=== PATIENT | female | born 1995 | race Caucasian/White ===

== ENCOUNTER → 2023-04-21 16:08 | Outpatient (CLI) | payer BC, SELFPAY ==
[2023-04-21 18:51] LABS: HCG,Quantitative 49064 mIU/ml (0-5.42)
[2023-04-23 08:36] LABS: Progesterone 20.8 ng/mL (.)
== END ==
LOC: LAB 16:08
PROVIDERS: PCP Family Medicine; Visit Provider Obstetrics & Gynecology
DX: Z34.91 Encounter for supervision of normal pregnancy, unspecified, first trimester (principal)
CPT/HCPCS: 36415; 84144; 84702

== ENCOUNTER → 2023-05-03 14:00 | Outpatient (CLI) | payer BC, SELFPAY ==
[2023-05-03 15:04] LABS: Basophils % 0.2 % (0.1-2.0); Eosinophils # 0.1 K/mm3 (0.0-0.4); Eosinophils % 0.7 % (0.1-12.0); Hemoglobin 8.6 g/dL (12.2-16.2); Lymphocytes # 1.3 K/mm3 (0.7-4.5); Lymphocytes % 19.4 % (10-50); Mean Corpuscular HGB Conc 29.3 g/dL (31.8-35.4); Mean Corpuscular Hemoglobin 19.7 pg (27.0-31.2); Mean Corpuscular Volume 67.5 fl (81-99); Mean Platelet Volume 8.5 fl (7.4-10.4); Monocytes # 0.4 K/mm3 (0.1-1.0); Monocytes % 5.6 % (1.7-9.3); Neutrophils # 5.1 K/mm3 (1.8-7.8); Neutrophils % 74.1 % (37.0-80.0); Platelet Count 397 K/mm3 (142-424); Red Blood Count 4.33 M/mm3 (4.20-5.40); Red Cell Distribution Width 17.5 % (11.5-17.5); White Blood Count 6.9 K/mm3 (4.8-10.8)
[2023-05-03 15:11] LABS: Hematocrit 29.2 % (37.0-47.0)
[2023-05-05 10:47] LABS: HIV Screen 4th Generation wRfx Non Reactive (Non Reactive); Rubella Antibodies, IgG 9.24 index (Immune >0.99)
[2023-05-05 14:12] LABS: Rapid Plasma Reagin Ab Titer Non Reactive titer (NonRea<1:1)
[2023-05-11 08:21] LABS: Hepatitis B Surface Antigen Negative; Hepatitis C Antibody Non Reactive
== END ==
PROVIDERS: Visit Provider Obstetrics & Gynecology
DX: Z34.91 Encounter for supervision of normal pregnancy, unspecified, first trimester (principal); Z3A.08 8 weeks gestation of pregnancy
CPT/HCPCS: 36415; 85025; 86593; 86703; 86762; 86850; 87340; 87380; G0432

== ENCOUNTER → 2023-05-03 23:03 | Outpatient (CLI) | payer BC, SELFPAY | PROVIDERS: PCP Family Medicine; Visit Provider Obstetrics & Gynecology | DX: Z34.91 Encounter for supervision of normal pregnancy, unspecified, first trimester (principal); Z3A.08 8 weeks gestation of pregnancy | CPT/HCPCS: 87086 ==

== ENCOUNTER → 2023-07-28 12:35 | Outpatient (CLI) | payer BC, SELFPAY ==
--- NOTE | 2023-07-28 12:50 | US_ITS ---
PROCEDURE: US OB /MATERNAL DETAIL CLINICAL INDICATION: 20 week anatomy scan COMPARISON: No exams were available for comparison FINDINGS: Transabdominal sonographic images of the pelvis were obtained. From her established due date she is 20 weeks 5 days. Single viable intrauterine gestation. Initially breech position then changed to cephalic. Placenta: Posteriorplacenta grade 1. There is an average amount of fluid. The cervix appears satisfactory. Closed and measuring 4.02 cm in length. Complete survey performed and was unremarkable on the submitted images as in PACS. No discrete anomalies identified on survey imaging by technologist. Active fetus. Three-vessel cord with satisfactory umbilical cord insertion. 4- chamber heart noted. Situs, aortic arch, LVOT, RVOT, three-vessel view appear normal. Survey of brain & ventricles Unremarkable. Cerebellum, thalamus, choroid plexus, cisterna magna appear normal. Face and neck survey unremarkable. Profile, nasion, lips and nose appeared normal. Diaphragm and chest views unremarkable. Abdomen: Both kidneys noted and unremarkable. Stomach and bladder noted and satisfactory. Spine: Survey of the spine satisfactory with no anomalies identified nor imaged. Cervical, thoracic, lower spine appear normal. Both arms and legs noted. Amniotic Fluid: Adequate. Measurements: Average ultrasound age 20weeks 3days. Estimated due date by ultrasound age 0512/12/2023. Estimated weight 345g BPD = 20weeks 3days HC = 20weeks 3days AC = 20weeks 4days. FL = 20weeks Growth Percentile= 25 Heart Rate = 167bpm Cerebellum = 20weeks 4days Humerus = 20weeks 6days HC/AC is 1.16 FL/BPD is 0.67 . IMPRESSION: 1. Viable fetus initially in the breech presentation then switched to cephalic. 2. The fluid is within normal limits. 3. Anatomical scan appears normal. 4. biometry is consistent with the dates. Dictated by: Larry Walker MD 07/28/2023 16:47 Larry Walker MD in [place] 07/28/2023 16:47
== END ==
LOC: RAD 12:36
PROVIDERS: PCP Family Medicine; Visit Provider Obstetrics & Gynecology
DX: Z34.92 Encounter for supervision of normal pregnancy, unspecified, second trimester (principal); Z3A.20 20 weeks gestation of pregnancy
CPT/HCPCS: 76811

== ENCOUNTER 2023-09-04 08:19 | Outpatient (CLI) | payer BC, SELFPAY ==
[2023-09-04 08:44] LABS: Basophils % 0.4 % (0.1-2.0); Eosinophils # 0.1 K/mm3 (0.0-0.4); Eosinophils % 0.7 % (0.1-12.0); Hematocrit 26.4 % (37.0-47.0); Hemoglobin 8.4 g/dL (12.2-16.2); Lymphocytes # 1.4 K/mm3 (0.7-4.5); Lymphocytes % 22.1 % (10-50); Mean Corpuscular Hemoglobin 21.3 pg (27.0-31.2); Mean Corpuscular Volume 66.5 fl (81-99); Mean Platelet Volume 9.8 fl (7.4-10.4); Monocytes # 0.3 K/mm3 (0.1-1.0); Monocytes % 5.1 % (1.7-9.3); Neutrophils # 4.6 K/mm3 (1.8-7.8); Neutrophils % 71.8 % (37.0-80.0); Platelet Count 335 K/mm3 (142-424); Red Blood Count 3.96 M/mm3 (4.20-5.40); Red Cell Distribution Width 16.5 % (11.5-17.5); White Blood Count 6.4 K/mm3 (4.8-10.8)
[2023-09-04 10:05] LABS: Glucose,Fasting 81 mg/dl (74-100)
[2023-09-04 10:23] LABS: Glucose 1 Hour 107 mg/dL (74-100)
== END 2023-09-04 23:59 ==
LOC: LAB 08:21
PROVIDERS: PCP Family Medicine; Visit Provider Obstetrics & Gynecology
DX: Z34.92 Encounter for supervision of normal pregnancy, unspecified, second trimester (principal); Z3A.26 26 weeks gestation of pregnancy
CPT/HCPCS: 36415; 82951; 85025

== ENCOUNTER 2023-09-24 10:32 | Outpatient (CLI) | payer BC, SELFPAY ==
[2023-09-24 11:55] LABS: Ferritin 3.54 ng/ml (6.24-137)
[2023-09-25 05:57] LABS: Transferrin 450 mg/dL (192-364)
== END 2023-09-24 23:59 ==
LOC: LAB 10:32
PROVIDERS: PCP Nurse Practitioner Family; Visit Provider Obstetrics & Gynecology
DX: O99.013 Anemia complicating pregnancy, third trimester (principal); Z3A.29 29 weeks gestation of pregnancy; Z79.899 Other long term (current) drug therapy
CPT/HCPCS: 36415; 82728; 84466

== ENCOUNTER 2023-10-01 13:55 | Outpatient (CLI) | payer BC, SELFPAY ==
[2023-10-01 14:20] VITALS: BP 115/71; PULSE 72; RESP 18; O2SAT 98
[2023-10-01] MEDS: SODIUM CHLORIDE 0.9% 50ML BAG 50 ML IV (14:20)
[2023-10-01] MEDS: SODIUM CHLORIDE 0.9% 10ML FLUSH SYRINGE 10 ML IV (14:20)
[2023-10-01] MEDS: IRON SUCROSE COMPLEX 200 MG in 0.9 % SODIUM CHLORIDE 100 ML 220 MG IV (14:20)
[2023-10-01 14:50] VITALS: BP 121/68; PULSE 76
== END 2023-10-01 14:55 | disposition home or self-care (01) ==
LOC: INF 13:56
PROVIDERS: PCP Nurse Practitioner Family; Visit Provider Obstetrics & Gynecology
DX: O99.019 Anemia complicating pregnancy, unspecified trimester (principal); O99.013 Anemia complicating pregnancy, third trimester; Z3A.30 30 weeks gestation of pregnancy
CPT/HCPCS: 96365; J1756

== ENCOUNTER 2023-10-08 10:18 | Outpatient (CLI) | payer BC, SELFPAY ==
[2023-10-08 10:41] VITALS: BP 121/68; PULSE 68; RESP 18; TEMP 36.3; O2SAT 100
[2023-10-08] MEDS: IRON SUCROSE COMPLEX 200 MG in 0.9 % SODIUM CHLORIDE 100 ML 220 MG IV (10:45)
[2023-10-08] MEDS: SODIUM CHLORIDE 0.9% 50ML BAG 50 ML IV (10:46)
[2023-10-08] MEDS: SODIUM CHLORIDE 0.9% 10ML FLUSH SYRINGE 10 ML IV (10:47)
[2023-10-08 11:26] VITALS: BP 110/64; PULSE 67; RESP 16; O2SAT 100
== END 2023-10-08 11:27 | disposition home or self-care (01) ==
LOC: INF 10:19
PROVIDERS: PCP Nurse Practitioner Family; Visit Provider Obstetrics & Gynecology
DX: O99.013 Anemia complicating pregnancy, third trimester (principal); Z3A.31 31 weeks gestation of pregnancy
CPT/HCPCS: 96365; J1756

== ENCOUNTER 2023-10-15 10:34 | Outpatient (CLI) | payer BC, SELFPAY ==
[2023-10-15 11:00] VITALS: BP 126/72; PULSE 84; RESP 18; O2SAT 99
[2023-10-15] MEDS: IRON SUCROSE COMPLEX 200 MG in 0.9 % SODIUM CHLORIDE 100 ML 220 MG IV (11:00)
[2023-10-15 11:30] VITALS: BP 127/81; PULSE 76
[2023-10-15] MEDS: SODIUM CHLORIDE 0.9% 50ML BAG 50 ML IV (11:30)
== END 2023-10-15 11:35 | disposition home or self-care (01) ==
LOC: INF 10:34
PROVIDERS: PCP Nurse Practitioner Family; Visit Provider Obstetrics & Gynecology
DX: O99.013 Anemia complicating pregnancy, third trimester (principal); Z3A.33 33 weeks gestation of pregnancy
CPT/HCPCS: 96365; J1756

== ENCOUNTER 2023-10-22 09:54 | Outpatient (CLI) | payer BC, SELFPAY ==
[2023-10-22 10:15] VITALS: BP 126/71; PULSE 76; RESP 18; TEMP 36.8; O2SAT 100
[2023-10-22] MEDS: IRON SUCROSE COMPLEX 200 MG in 0.9 % SODIUM CHLORIDE 100 ML 220 MG IV (10:15)
[2023-10-22] MEDS: SODIUM CHLORIDE 0.9% 50ML BAG 50 ML IV (10:20)
[2023-10-22] MEDS: SODIUM CHLORIDE 0.9% 10ML FLUSH SYRINGE 10 ML IV (10:20)
[2023-10-22 10:45] VITALS: BP 122/68; PULSE 72
== END 2023-10-22 10:52 | disposition home or self-care (01) ==
LOC: INF 09:54
PROVIDERS: PCP Nurse Practitioner Family; Visit Provider Obstetrics & Gynecology
DX: O99.013 Anemia complicating pregnancy, third trimester (principal); Z3A.33 33 weeks gestation of pregnancy
CPT/HCPCS: 96365; J1756

== ENCOUNTER 2023-11-11 13:39 | Outpatient (CLI) | payer BC, SELFPAY ==
--- NOTE | 2023-11-11 13:42 | US_ITS ---
PROCEDURE: US OB BIOPHYSICAL PROFILE CLINICAL INDICATION: SGA , OB BPP/Growth with MIREILLE COMPARISON: US US OB /MATERNAL DETAIL from 07/28/2023 FINDINGS: Transabdominal sonographic images of the uterus were obtained. From her established due date she is 35weeks 6days. The following parameters are obtained: Viable Fetus in the cephalic presentation with a posterior placenta grade 2. Average ultrasound age is 34weeks 3days Estimated weight 2,117g, 4 lb 11 oz. The cervix measures 3.0 cm. Measurements: heart Rate = 132bpm BPD = 36weeks 1day, 63 percentile HC = 36weeks 2days, 26 percentile AC = 32weeks 2days, less than 2 percentile FL = 32weeks 5days, less than 2 percentile HC/AC is 1.13 FL/BPD is 0.71 FL/AC is 0.22 3rd percentile Amniotic fluid index: 14.18cm, MVP 6.48 cm. Qualitative AFV:2 Breathing movements: 2 Gross Body Movements: 2 Tone: 2 Biophysical profile score: 8 No obvious anomalies evident.Kidneys, four-chamber heart, three-vessel cord appear normal. IMPRESSION: 1. Viable fetus in the cephalic presentation with a posterior placenta grade 2. 2. The fluid is within normal limits with an amniotic fluid index of 14.18 cm, MVP 6.48 cm. 3. Biophysical profile is 8/8 with good breathing movement and movement seen. 4. Fetus is showing asymmetric growth restriction with AC currently 3-1/2 weeks behind, less than the 2nd percentile. 5. Suggest close follow-up. Dictated by: Larry Walker MD 11/11/2023 15:52 Larry Walker MD in [place] 11/11/2023 15:52
== END 2023-11-11 23:59 | disposition home or self-care (01) ==
LOC: RAD 13:40
PROVIDERS: PCP Nurse Practitioner Family; Visit Provider Obstetrics & Gynecology
DX: O36.5930 Maternal care for other known or suspected poor fetal growth, third trimester, not applicable or unspecified (principal); Z3A.35 35 weeks gestation of pregnancy
CPT/HCPCS: 76816; 76819

== ENCOUNTER 2023-11-19 16:28 | Outpatient (CLI) | payer BC, SELFPAY | END 2023-11-19 23:59 | LOC: LAB.DROPOF 16:29 | PROVIDERS: PCP Obstetrics & Gynecology; Visit Provider Obstetrics & Gynecology | DX: O26.893 Other specified pregnancy related conditions, third trimester (principal); Z3A.37 37 weeks gestation of pregnancy | CPT/HCPCS: 86403 ==

== ENCOUNTER 2023-11-23 07:31 | Outpatient (CLI) | payer BC, SELFPAY ==
--- NOTE | 2023-11-23 07:46 | US_ITS ---
PROCEDURE: US OB BIOPHYSICAL PROFILE CLINICAL INDICATION: SGA COMPARISON: US US OB BIOPHYSICAL PROFILE from 11/11/2023 FINDINGS: Transabdominal sonographic images of the uterus were obtained. From her established due date she is 37weeks 4days. The following parameters are obtained: Viable Fetus in the cephalic presentation with a posterior placenta grade 2. Average ultrasound age is 34weeks 6days Estimated weight 2,523g, 5 lb 9 oz The cervix measures 3.0 cm Measurements: heart Rate = 146bpm BPD = 35weeks 1day, 10 percentile HC = 35weeks 0 days, < 2 percentile AC = 35weeks 4days, 13 percentile FL = 33weeks 2days, < 2 percentile HC/AC is 0.99 FL/BPD is 0.74 FL/AC is 0.2 6 percentile Amniotic fluid index: 13.87cm, MVP 4.23 cm. Qualitative AFV:2 Breathing movements: 2 Gross Body Movements: 2 Tone: 2 Biophysical profile score: 8 Doppler evaluation of the umbilical artery: SD ratio: 2.33-2.55 Resistive index: 0.57 No obvious anomalies evident.Kidneys, profile, bladder, four-chamber heart, three-vessel cord appear normal. There is bilateral renal pelvis dilation of 5 mm. IMPRESSION: 1. Viable fetus in the cephalic presentation with a posterior placenta grade 2. 2. The fluid is within normal limits with an amniotic fluid index of 13.87 cm, MVP 4.23 cm. 3. Biophysical profile is 8/8 with good breathing movement and movement seen. 4. SD ratio is normal at 2.3 3-2.55. 5. Fetus continues to be symmetrically small for gestational age currently 6 percentile. Dictated by: Larry Walker MD 11/24/2023 08:14 Larry Walker MD in [place] 11/24/2023 08:14
== END 2023-11-23 23:59 | disposition home or self-care (01) ==
LOC: RAD 07:32
PROVIDERS: PCP Nurse Practitioner Family; Visit Provider Obstetrics & Gynecology
DX: O36.5930 Maternal care for other known or suspected poor fetal growth, third trimester, not applicable or unspecified (principal); Z3A.38 38 weeks gestation of pregnancy
CPT/HCPCS: 76816; 76819; 76820

== ENCOUNTER 2023-11-30 14:54 | Inpatient (IN) | payer BC, SELFPAY ==
[2023-11-30 15:08] VITALS: BMI 31.2
[2023-11-30 15:20] VITALS: BP 119/68; PULSE 78; RESP 18; TEMP 36.8; O2SAT 98; BMI 31.2
[2023-11-30 16:10] LABS: Microscopic, Urine URINE MICROSCOPIC (MICROSCOPIC)
[2023-11-30 16:11] LABS: Basophils % 0.2 % (0.1-2.0); Eosinophils # 0.1 K/mm3 (0.0-0.4); Eosinophils % 0.6 % (0.1-12.0); Hematocrit 34.4 % (37.0-47.0); Lymphocytes # 1.3 K/mm3 (0.7-4.5); Lymphocytes % 16.2 % (10-50); Mean Corpuscular HGB Conc 32.1 g/dL (31.8-35.4); Mean Corpuscular Hemoglobin 24.2 pg (27.0-31.2); Mean Corpuscular Volume 75.4 fl (81-99); Mean Platelet Volume 9.6 fl (7.4-10.4); Monocytes # 0.3 K/mm3 (0.1-1.0); Monocytes % 3.5 % (1.7-9.3); Neutrophils # 6.2 K/mm3 (1.8-7.8); Neutrophils % 79.5 % (37.0-80.0); Platelet Count 321 K/mm3 (142-424); Red Blood Count 4.56 M/mm3 (4.20-5.40); Red Cell Distribution Width 21.7 % (11.5-17.5); White Blood Count 7.8 K/mm3 (4.8-10.8)
[2023-11-30 16:20] LABS: Appearance,Urine CLEAR (Clear); Bilirubin,Urine Negative (Negative); Blood, Urine Negative (Negative); Color,Urine YELLOW (Yellow); Glucose,Urine (UA) Negative (Negative); Ketones,Urine 1+ (Negative); Leukocyte Esterase,Urine 1+ (Negative); Nitrate,Urine Negative (Negative); PH,Urine 6.5 (5.0-8.5); Protein,Urine Negative (Negative); Specific Gravity, Urine 1.025 (1.005-1.030); Urobilinogen,Urine 0.2 EU/dl (0.2)
[2023-11-30] MEDS: miSOPROStol 100MCG TABLET 50 MCG PO ×2 (16:24→21:48)
[2023-11-30 16:36] LABS: Barbiturates Screen,Urine Negative ng/ml (<200); Benzodiazepines Screen,Urine Negative ng/ml (<200)
[2023-11-30 16:37] LABS: Amphetamine/Metha Screen,Urine Negative ng/ml (<1000)
[2023-11-30 16:38] LABS: Cannabinoid Screen,Urine Negative ng/ml (<50); Methadone Screen,Urine Negative ng/ml (<300)
[2023-11-30 16:39] LABS: Cocaine Screen,Urine Negative ng/ml (<300)
[2023-11-30 16:40] LABS: Opiate Screen,Urine Negative ng/ml (<300); Phencyclidine Screen,Urine Negative ng/ml (<25)
[2023-11-30 17:34] LABS: WBC,Urine Occasional #/hpf (0-3)
[2023-11-30 17:35] LABS: Bacteria,Urine Trace /lpf
[2023-12-01] MEDS: OXYTOCIN/RINGERS LACTATE 30 UNITS/500 ML BAG IV (03:57)
[2023-12-01] MEDS: DEXTROSE 5%-LACTATED RINGERS 1,000 ML 125 ML IV (03:57)
[2023-12-01] MEDS: LACTATED RINGERS 1000ML 1,000 ML 250 ML IV ×2 (03:57→08:38)
--- NOTE | 2023-12-01 08:36 | EXP.OB.APHP ---
OB - H&P: HPI Antepartum History of Present Illness Chief complaint: Scheduled induction of labor secondary to IUGR History of present illness: Mrs Carmen Maciel is a very pleasant 28 yo at 38w5d who presents to [facility] Labor and Delivery for scheduled induction of labor for IUGR. Growth ultrasound 11/23/23 demonstrated EFW 6 %ile, S/D ratio WNL, MIRE[place]LE WNL, BPP 8/8. She has had good care. complicated by Anemia and anxiety. She received four weekly infusions of Venofer. She is currently taking Setraline 100 mg PO daily. Baby is active. No leakage of fluid or vaginal bleeding. GBS pending. History of Present Criteria for establishing EDC:: LMP confirmed by 1st trimester US care: good care Ultrasounds: abnormal US findings (IUGR) Obstetrical complications: none Medical complications: other (anemia, anxiety) Labs Blood type: O (+) positive Rubella: immune RPR/VDRL: nonreactive GBS status: unknown (pending) HBsAG: negative PFSH PFSH Disclaimer: The information contained in this section may have been updated after the patient was seen, as this information can be updated by other users. Medical History (Updated 12/01/23 @ 08:44 by Lisa Guardado DO) with 38 completed weeks gestation Asymmetric IUGR affecting , antepartum Anemia affecting Anxiety disorder affecting , antepartum Surgical History History of tonsillectomy and adenoidectomy History of gastric bypass Family History Father Hypertension Grandmother Cancer Breast Social History Smoking Status: Never smoker second hand exposure: No alcohol intake: never substance use type: denies use current occupational status: employed Travel in the last 8 weeks: None household members: spouse housing: house marital status: Review of Systems Review of Systems Review of systems:: pertinent systems reviewed and negative unless documented below Meds Home Medications and Allergies Home Medications Medication Instructions Recorded Confirmed Type sertraline 100 mg tablet (Zoloft) 100 mg PO DAILY #30 tabs 11/19/23 11/30/23 Rx New Prescriptions to Start Prescriptions: Allergies Allergy/AdvReac Type Severity Reaction Status Date / Time No Known Allergies Allergy Verified 11/23/23 09:15 OB - H&P: Exam Physical Exam Vital signs: Temp Pulse Resp BP Pulse Ox O2 Del Method 98.2 F 78 18 119/68 98 Room Air 11/30/23 15:20 11/30/23 15:20 11/30/23 15:20 11/30/23 15:20 11/30/23 15:20 11/30/23 15:20 Constitutional no acute distress and cooperative Routine HEENT Exam Head: Present normocephalic and atraumatic Eye: Absent conjunctivae pink ENT: Present mucous membranes moist Routine Neck Exam Present full ROM Routine Respiratory Exam Present CTA bilaterally and normal respiratory effort Routine Cardiovascular Exam Present RRR Routine Abdominal Exam Present soft (Gravid); Absent tenderness Routine Rectal Exam Patient deferred: visual exam Routine Exam External: Present normal urethra appearance; Absent erythema, swelling, tenderness, lesions or lacerations Routine Extremities Exam Present full ROM; Absent edema or calf tenderness Routine Neurological Exam Present alert, moving all extremities and normal speech Routine Psychiatric Exam Present normal affect and cooperative Detailed Labor and Delivery Exam Dilation (cm): 4 Effacement (%): 60 Cervix position: mid station: -2 Consistency: soft Membranes: artificially ruptured (AROM'd at 0750 with amnihook without difficulty, clear fluid) Amniotic fluid: clear Baseline heart rate: 120 monitor accelerations: Present monitor decelerations: None nursing home variability: Moderate (11-25) Contraction frequency (min): 2 Tachysystole: No OB - Results Labs Labs: Short CBC 11/30/23 Range/Units 15:30 WBC 7.8 (4.8-10.8) K/mm3 Hgb 11.0 L (12.2-16.2) g/dL Hct 34.4 L (37.0-47.0) % Plt Count 321 (142-424) K/mm3 Urine 11/30/23 Range/Units 15:30 Urine Color Yellow (Yellow) Urine Appearance Clear (Clear) Urine pH 6.5 (5.0-8.5) Ur Specific [place] 1.025 (1.005-1.030) Urine Protein Negative (Negative) Urine Glucose (UA) Negative (Negative) OB - A/P Antepartum (1) with 38 completed weeks gestation: Status: Acute (2) Asymmetric IUGR affecting , antepartum: Status: Acute (3) Anemia affecting : Status: Acute (4) Anxiety disorder affecting , antepartum: Status: Acute Additional Plan Additional Information:: Admit to [facility] L&D for induction of labor Induction with Cytotec followed by Pitocin GBS pending. Start ampicillin for GBS prophylaxis Close monitoring
[2023-12-01] MEDS: OXYTOCIN/RINGERS LACTATE 30 UNITS/500 ML BAG 999 UNITS IV (09:32)
[2023-12-01] MEDS: IBUPROFEN 400 MG TABLET 800 MG PO (09:41)
[2023-12-01] MEDS: BENZOCAINE-MENTHOL SPRAY 56GM CAN TP (10:00)
--- NOTE | 2023-12-01 10:00 | P.PCN_ITS ---
Delivery Note Delivery Date:: 12/01/23 Delivery Time:: 09:29 Anesthesia Type: Local Was labor medically induced?: Yes Induction method: per misoprostol protocol Gestational age (weeks): 38 Infant delivered prior to 39 weeks?: Yes Justification for early elective delivery:: IUGR Gender: Male at 1 minute: 9 at 5 minutes: 9 LAC or MLE?: LAC Delivery Procedure:: Mom complete without epidural. Pushed for approximately 2 contractions. Head delivered spontaneously over intact perineum in OCHOA position. Nuchal cord x 1 delivered through. Anterior shoulder delivered spontaneously. Posterior shoulder and remainder of body delivered spontaneously. Baby placed on maternal abdomen, mouth and nares bulb suctioned, warmed/dried and stimulated. Delayed cord clamping was performed for 60 seconds. Cord was clamped and cut by father of candido altamirano. Cord blood was obtained. Placenta delivered spontaneously and intact. Placenta will be sent to pathology for review. Second degree laceration repaired with 3-0 Vicryl. Hemostasis noted. Bilateral labial abrasions hemostatic. Mom and baby were skin to skin and doing well after delivery. Live male baby (baby's name is Norman Leslie APGARs 9 (1 min), 9 (5 min) EBL 250 mL Placental Delivery Description: Spontaneous
[2023-12-01] MEDS: ACETAMINOPHEN 500MG TAB 1000 MG PO (17:20)
[2023-12-01] MEDS: PRENATAL MULTIVITAMIN W/IRON 1 EACH PO (17:21)
[2023-12-01] MEDS: LIDOCAINE/PRILOCAINE 5GM TUBE 1 GM TP (17:52)
[2023-12-01] MEDS: OXYCODONE 5MG IMMEDIATE RELEASE TABLET 5 MG PO (17:52)
[2023-12-01 20:01] VITALS: BP 109/63; PULSE 66; RESP 16; TEMP 37; O2SAT 100
[2023-12-01 21:17] VITALS: BP 121/72; PULSE 89
[2023-12-01] MEDS: SERTRALINE 100MG TABLET 100 MG PO (21:18)
[2023-12-01 21:39] LABS: POC Glucose,Bedside 103 (70-110)
--- NOTE | 2023-12-01 21:59 | ECG_ITS ---
APPROVED REPORT Exam: Resting ECG HR:77 bpm ECG Measurements Heart Rate [address] 135 P 54 QRSd 92 QRS 6 QT 364 T 9 QTc 395 Conclusion SINUS RHYTHM NORMAL ECG UNCONFIRMED REPORT Electronically signed by : Roberto Amaro MD 12/02/2023 21:28:36
[2023-12-01 22:03] LABS: Basophils % 0.1 % (0.1-2.0); Eosinophils % 0.3 % (0.1-12.0); Hematocrit 26.7 % (37.0-47.0); Hemoglobin 9.2 g/dL (12.2-16.2); Lymphocytes # 0.9 K/mm3 (0.7-4.5); Lymphocytes % 7.3 % (10-50); Mean Corpuscular HGB Conc 34.6 g/dL (31.8-35.4); Mean Corpuscular Hemoglobin 26.9 pg (27.0-31.2); Mean Corpuscular Volume 77.7 fl (81-99); Mean Platelet Volume 10.3 fl (7.4-10.4); Monocytes # 0.4 K/mm3 (0.1-1.0); Monocytes % 3.1 % (1.7-9.3); Neutrophils # 10.7 K/mm3 (1.8-7.8); Neutrophils % 89.2 % (37.0-80.0); Platelet Count 293 K/mm3 (142-424); Red Blood Count 3.44 M/mm3 (4.20-5.40); Red Cell Distribution Width 22.2 % (11.5-17.5)
[2023-12-01 22:05] LABS: MANUAL DIFFERENTIAL MANUAL DIFFERENTIAL (MANUAL DIFF)
[2023-12-01 22:13] LABS: Chloride 107 mmol/L (98-107); Potassium 3.7 mmoL/L (3.5-5.1); Sodium 135 mmol/L (136-145)
[2023-12-01 22:15] LABS: Blood Urea Nitrogen 3 mg/dl (7-17); Creatinine Clearance Estimated 261 mL/min (50-200); Estimated Glomerular Filt Rate 193 ml/min (>60); GFR (African American) 233 ML/MIN (>60)
[2023-12-01 22:16] LABS: Alanine Aminotransferase 12 U/L (12-78); Albumin/Globulin Ratio 1.3 (1.1-1.8); Alkaline Phosphatase 104 U/L (38-126); Anion Gap 5.7 mEq/L (5-15); Aspartate Amino Transferase 30 U/L (14-36); Bilirubin,Total 0.3 mg/dl (0.2-1.3); Calcium 9.1 mg/dl (8.4-10.2); Carbon Dioxide 26 mmol/L (22.0-30.0); Globulin 2.4 g/dL (1.3-3.2); Glucose 111 mg/dl (74-100); Total Protein,Serum 5.4 g/dl (6.3-8.2)
[2023-12-01 22:18] LABS: Anisocytosis 1+; Hypochromasia 1+; Lymphocytes % 10 % (10-50); Microcytosis 1+; Monocytes % 5 % (2-9); Neutrophils % 85 % (42-76); Ovalocytes 1+; Platelet Estimate Normal; Tear Drop Cells 1+; Total Cells Counted 100
--- NOTE | 2023-12-01 22:31 | P.CONS_ITS ---
History of Present Illness *Admission Date: 12/01/23 *Reason for visit:: syncope *History of present illness: This is a 28 yo L1 who presented to [facility] Labor and Delivery for scheduled induction of labor for IUGR. Delivery was successfully without complications. No epidural was given. Medicine was consulted for syncope post . Patient has no apparent medical history other than anemia and anxiety during . She received four weekly infusions of Venofer. She is currently taking Setraline 100 mg PO daily. Baby is ok. No leakage of fluid or excessive vaginal bleeding. GBS pending. [facility] Disclaimer: The information contained in this section may have been updated after the patient was seen, as this information can be updated by other users. Medical History (Updated 12/02/23 @ 01:53 by Luciano Alcantar APRN) with 38 completed weeks gestation Asymmetric IUGR affecting , antepartum Anemia affecting Anxiety disorder affecting , antepartum Surgical History (Updated 12/02/23 @ 01:53 by Luciano Alcantar APRN) History of tonsillectomy and adenoidectomy History of gastric bypass Family History Father Hypertension Grandmother Cancer Breast Social History Smoking Status: Never smoker second hand exposure: No alcohol intake: never substance use type: denies use current occupational status: employed Travel in the last 8 weeks: None household members: spouse housing: house marital status: Review of Systems Review of Systems Review of systems:: pertinent systems reviewed and negative unless documented below Exam Data for Last 24 hours Vital signs and Labs for Last 24 Hours: Temp Pulse Resp BP Pulse Ox O2 Del Method 98.2 F 78 18 119/68 98 Room Air 11/30/23 15:20 11/30/23 15:20 11/30/23 15:20 11/30/23 15:20 11/30/23 15:20 11/30/23 15:20 Laboratory Results - last 24 hr 12/01/23 21:26: POC Glucose 103 12/01/23 21:55: WBC 12.0 H D, RBC 3.44 L, Hgb 9.2 L, Hct 26.7 L, MCV 77.7 L, MCH 26.9 L, MCHC 34.6, RDW 22.2 H, Plt Count 293, MPV 10.3, Neut % (Auto) 89.2 H, L ymph % (Auto) 7.3 L, [place] % (Auto) 3.1, Eos % (Auto) 0.3, Baso % (Auto) 0.1, N eut # (Auto) 10.7 H, Lymph # (Auto) 0.9, [place] # (Auto) 0.4, Eos # (Auto) 0.0, Baso # (Auto) 0.0, Total Counted 100, Neutrophils % (Manual) 85 H, Lymphocytes % (Manual) 10, Monocytes % (Manual) 5, Platelet Estimate Normal, Hypochromasia 1+, Anisocytosis 1+, Microcytosis 1+, Tear Drop Cells 1+, Ovalocytes 1+, Sodium 135 L, Potassium 3.7, Chloride 107, Carbon Dioxide 26, Anion Gap 5.7, BUN 3 L, C reatinine 0.40 L, Estimated Creat Clear 261, Estimated GFR 193, Est GFR ( Amer) 233, Glucose 111 H, Calcium 9.1, Total Bilirubin 0.3, AST 30, ALT 12, Alkaline Phosphatase 104, Total Protein 5.4 L, Albumin 3.0 L, Globulin 2.4, Albumin/Globulin Ratio 1.3 I & O for Last 24 hours: Intake & Output 11/28/23 11/29/23 11/30/23 12/01/23 23:59 23:59 23:59 23:59 Output Total 1200 / 1200 Balance -1200 / -1200 Weight 77.564 kg Constitutional Constitutional: no acute distress and cooperative *Routine HEENT Exam Head: Present normocephalic Eye: Present EOMI and PERRL ENT: Present mucous membranes dry *Routine Neck Exam Neck: Present supple; Absent carotid bruit or lymphadenopathy *Routine Respiratory Exam Respiratory: Present CTA bilaterally *Routine Cardiovascular Exam Cardiovascular: Present RRR, Normal S1 and Normal S2 *Routine Abdominal Exam Abdominal: Present soft, normoactive bowel sounds and tenderness *Routine Exam Patient deferred: external exam *Routine Extremities Exam Extremities: Absent cyanosis, clubbing or edema *Routine Skin Exam Skin: Present pallor and warm; Absent rash *Routine Neurological Exam Neurological: Present alert, oriented X3, normal reflexes and moving all extremities Routine Psychiatric Exam Psychiatric: Present anxious Meds Home Medications and Allergies Home Medications Medication Instructions Recorded Confirmed Type sertraline 100 mg tablet (Zoloft) 100 mg PO DAILY #30 tabs 11/19/23 11/30/23 Rx New Prescriptions to Start Prescriptions: Allergies Allergy/AdvReac Type Severity Reaction Status Date / Time No Known Allergies Allergy Verified 11/23/23 09:15 Results Labs 12/01/23 21:55 12/01/23 21:55 Labs: Abnormal lab results 12/01/23 Range/Units 21:55 WBC 12.0 H D (4.8-10.8) K/mm3 RBC 3.44 L (4.20-5.40) M/mm3 Hgb 9.2 L (12.2-16.2) g/dL Hct 26.7 L (37.0-47.0) % MCV 77.7 L (81-99) fl MCH 26.9 L (27.0-31.2) pg RDW 22.2 H (11.5-17.5) % Neut % (Auto) 89.2 H (37.0-80.0) % Lymph % (Auto) 7.3 L (10-50) % Neut # (Auto) 10.7 H (1.8-7.8) K/mm3 Neutrophils % (Manual) 85 H (42-76) % Sodium 135 L (136-145) mmol/L BUN 3 L (7-17) mg/dl Creatinine 0.40 L (0.52-1.04) mg/dl Glucose 111 H (74-100) mg/dl Total Protein 5.4 L (6.3-8.2) g/dl Albumin 3.0 L (3.5-5.0) g/dl H & H 11/30/23 12/01/23 Range/Units 15:30 21:55 Hgb 11.0 L 9.2 L (12.2-16.2) g/dL Hct 34.4 L 26.7 L (37.0-47.0) % All other labs normal. Assessment and Plan *Assessment and plan (1) Syncope: Status: Acute Qualifiers: Syncope type: vasovagal syncope Qualified Code(s): R55 - Syncope and collapse Category: Medical Code(s): R55 - Syncope and collapse (2) POTS (postural orthostatic tachycardia syndrome): Status: Acute Category: Medical Code(s): G90.A - Postural orthostatic tachycardia syndrome [POTS] (3) anemia: Status: Acute Category: Medical Code(s): O90.81 - Anemia of the puerperium (4) Anxiety: Status: Acute Category: Medical Code(s): F41.9 - Anxiety disorder, unspecified (5) History of gastric bypass: Status: Acute Category: Surgical Code(s): Z98.84 - Bariatric surgery status Plan 28 yo L1 who presented to [facility] Labor and Delivery for scheduled induction of labor for IUGR. Delivery was successfully without complications. No epidural was given. Medicine was consulted for syncope post . patient denied LOC. however, nursing witnessed last episode with apparent complete collapse. labs work ordered. Hb currently on 9.2. no current excessive bleeding. electrolytes are normal. stand HR and vital signs positive for POTS. HR elevated to 150 from bed to stand position. EKG ordered. Plans as follow: -Syncope post-: suspected vasovagal reflex vs slight dehydration. -POTS: might be a contributor factor start IV NS @ 125ml/hr CBC/CMP STAT. reviewed. repeat in the morning EKG normal. no heart block. HR increased from 77 to 150 from bed to standing position ECHO ordered start continuos cardiac monitoring Orthostactic BP standing elevated HR test positive TSH, T3 T4 ordered started on propanolol 10mg BID avoid changing abruptly position fall precaution - Post anemia: stable. last hb 9.2 continue daily CBC monitor for bleeding Anxiety On zoloft. continue home regimen per primary team supportive care for first time mom Hx of bypass gastric. encouraged to drink enough to prevent dehydration educated to performs multiples small snacks Thanks for allow us to participate on this patient care.
[2023-12-01 22:47] VITALS: BP 106/35; PULSE 78
[2023-12-01 22:49] VITALS: BP 133/75; PULSE 120
[2023-12-01 22:50] VITALS: BP 127/68; PULSE 149
[2023-12-01] MEDS: 0.9 % SODIUM CHLORIDE 1000ML 1,000 ML 125 ML IV (23:01)
[2023-12-02] VITALS (7 sets, daily range): BP systolic 107–122; BP diastolic 57–76; PULSE 65–90; RESP 16–18; TEMP 36.8–37; O2SAT 100
--- NOTE | 2023-12-02 06:00 | CA_ITS ---
APPROVED REPORT EXAM: Comprehensive 2D, Doppler, and color-flow Echocardiogram [place]: Bre Cintron RDCS Ht: 5 ft 2 in Wt: 171lbs BSA: 1.79 BP: 119/68 mmHg Indications: SYNCOPE POST- M-Mode Dimensions RVDd 1.60 cm (0.9-2.6) LA Diam 3.01 cm (1.9-4.0) LVDd 5.60 cm (3.5-5.7) LVDs 3.94 cm (3.5-5.7) IVSd 0.41 cm (0.6-1.1) PWd 0.56 cm (0.6-1.1) EF (Teich) 56.10% FS 29.60% EDV (Teich) 153.70 mL ESV (Teich) 67.50 mL LV Diastology E Decel Time 200 (160-240 msec) E/A Ratio 1.6 Mitral Valve MV E Max [place]. 87.0 (40-130 cm/s) MV A Velocity 56.0 (40-130 cm/s) E/A Ratio 1.55 MV PHT 59.0 ms Left Ventricle The left ventricle is normal size. The left ventricular systolic function is normal. The left ventricular ejection fraction is within the normal range. There is normal left ventricular wall thickness. There is normal LV segmental wall motion. The left ventricular diastolic function is normal. LVEF is 55%. Right Ventricle Right ventricle is mildly dilated. The right ventricular systolic function is normal. Atria The left atrium size is normal. The right atrium size is normal. There is no Doppler evidence of interatrial shunt. The aortic valve opens well. Aortic Valve There is no aortic valvular stenosis. No aortic regurgitation is present. Mitral Valve The mitral valve is normal in structure. No evidence of mitral valve stenosis. There is no mitral valve regurgitation noted. Tricuspid Valve The tricuspid valve leaflets are thin and pliable. Trace tricuspid regurgitation. There is insufficient TR jet to estimate RVSP. Pulmonic Valve The pulmonary valve is normal in structure. Trace pulmonic regurgitation. Great Vessels The aortic root is normal in size. The ascending aorta is not well-visualized. IVC is normal in size and collapses >50% with inspiration. Pericardium There is no pericardial effusion. Other Information Study Quality: Fair Conclusion Normal biventricular systolic function. Mild RV dilation. No significant valvular stenosis or regurgitation. Electronically signed by : Gabby Suarez MD 12/06/2023 11:35:14
[2023-12-02 07:17] LABS: Hematocrit 25.3 % (37.0-47.0)
--- NOTE | 2023-12-02 07:22 | P.PN_ITS ---
Subjective *Date: 12/02/23 *Time: 07:22 Interval history: PPD # 1 s/p Resting comfortably in bed. Pain controlled. Breast feeding. Appropriate lochia. Stein catheter in place draining clear urine. Stein was inserted last night around 1800 because she could not void on her own. Suspect secondary to vaginal swelling from delivery. Since delivery she has attempted to get out of bed twice with assistance. Both times she felt well and then 10-15 minutes later she heard ringing in her ears followed by one syncopal episode and the second time she was near syncope. Once she sits back down she feels better. She denies chest pain, shortness of breath and palpitations. No fever/chills. Denies headaches, lightheadedness/dizziness. Tolerating regular diet. Medical Exam Vital signs and Labs for Last 24 Hours: Vital Signs Temp Pulse Pulse Pulse Pulse Resp BP 12/02/23 04:19 98.4 F 87 16 12/01/23 22:50 149 H 12/01/23 22:49 120 H 12/01/23 22:47 78 106/35 L 12/01/23 21:17 89 12/01/23 20:01 98.6 F 66 16 BP BP BP Pulse Ox O2 Del Method 12/02/23 04:19 122/76 12/01/23 22:50 127/68 12/01/23 22:49 133/75 12/01/23 22:47 12/01/23 21:17 121/72 12/01/23 20:01 109/63 L 100 Room Air Intake and Output 12/01/23 12/01/23 12/02/23 15:59 23:59 07:59 Output Total 1200 / 1200 Balance -1200 / -1200 Output: Output, Urine Amount (Catheter) 1200 / 1200 Stein 1200 / 1200 Laboratory Results - last 24 hr 12/01/23 21:26: POC Glucose 103 12/01/23 21:55: WBC 12.0 H D, RBC 3.44 L, Hgb 9.2 L, Hct 26.7 L, MCV 77.7 L, MCH 26.9 L, MCHC 34.6, RDW 22.2 H, Plt Count 293, MPV 10.3, Neut % (Auto) 89.2 H, Lymph % (Auto) 7.3 L, [place] % (Auto) 3.1, Eos % (Auto) 0.3, Baso % (Auto) 0.1, Neut # (Auto) 10.7 H, Lymph # (Auto) 0.9, [place] # (Auto) 0.4, Eos # (Auto) 0.0, Baso # (Auto) 0.0, Total Counted 100, Neutrophils % (Manual) 85 H, Lymphocytes % (Manual) 10, Monocytes % (Manual) 5, Platelet Estimate Normal, Hypochromasia 1+, Anisocytosis 1+, Microcytosis 1+, Tear Drop Cells 1+, Ovalocytes 1+, Sodium 135 L, Potassium 3.7, Chloride 107, Carbon Dioxide 26, Anion Gap 5.7, BUN 3 L, Creatinine 0.40 L, Estimated Creat Clear 261, Estimated GFR 193, Est GFR ( Amer) 233, Glucose 111 H, Calcium 9.1, Total Bilirubin 0.3, AST 30, ALT 12, Alkaline Phosphatase 104, Total Protein 5.4 L, Albumin 3.0 L, Globulin 2.4, Albumin/Globulin Ratio 1.3 12/02/23 06:15: Free T4 0.70 L I & O for Labs for Last 24 Hours: Intake & Output 11/29/23 11/30/23 12/01/23 12/02/23 23:59 23:59 23:59 23:59 Output Total 1200 / 1200 Balance -1200 / -1200 Weight 171 lb Head: Present atraumatic and normocephalic ENT: Present normal exam Neck: Present normal inspection and full ROM Respiratory: Present CTA bilaterally and normal respiratory effort Cardiac: Present Reg Rate and Rhythm GI: Present soft and normal bowel sounds; Absent distention or tenderness Comments:: Uterine fundus firm and below umbilicus Rectal (female): Present deferred (female): Present deferred Extremities: Present full ROM; Absent edema or calf tenderness Neuro: Present alert, awake and moves all extremities Assessment and Plan *Assessment and plan (1) Status post vaginal delivery: Status: Acute Category: Surgical (2) with 38 completed weeks gestation: Status: Acute Category: Medical Code(s): Z3A.38 - 38 weeks gestation of (3) Asymmetric IUGR affecting , antepartum: Status: Acute Category: Medical Code(s): O36.5990 - Maternal care for other known or suspected poor growth, unspecified trimester, not applicable or unspecified (4) Anemia affecting : Status: Acute Qualifiers: Trimester: second trimester Qualified Code(s): O99.012 - Anemia complicating , second trimester Category: Medical Code(s): O99.019 - Anemia complicating , unspecified trimester (5) Anxiety disorder affecting , antepartum: Status: Acute Category: Medical Code(s): O99.340 - Other mental disorders complicating , unspecified trimester; F41.9 - Anxiety disorder, unspecified (6) Syncope: Status: Acute Qualifiers: Syncope type: vasovagal syncope Qualified Code(s): R55 - Syncope and collapse Category: Medical Code(s): R55 - Syncope and collapse (7) anemia: Status: Acute Category: Medical Code(s): O90.81 - Anemia of the puerperium (8) POTS (postural orthostatic tachycardia syndrome): Status: Acute Category: Medical Code(s): G90.A - Postural orthostatic tachycardia syndrome [POTS] (9) History of gastric bypass: Status: Acute Category: Surgical Code(s): Z98.84 - Bariatric surgery status Plan Hospitalist was consulted last night. monitor tech revealed elevated HR upon standing... HR increased from 77 to 150 from bed to standing position . Possible POTS Labs ordered. Labs that have resulted are within normal limits EKG normal Echo performed this morning She was started on propranolol 10 mg BID Appreciate Hospitalist care Continue routine care Venofer 200 mg IV x 1 dose Plan to pau morataya today after we see how she tolerates getting out of bed and ambulating
[2023-12-02 07:27] LABS: Thyroid Stimulating Hormone 3.37 uIU/mL (0.465-4.68)
[2023-12-02] MEDS: PROPRANOLOL 20MG TAB 10 MG PO ×2 (08:18→21:01)
[2023-12-02 08:52] LABS: Hemoglobin 8.1 g/dL (12.2-16.2)
[2023-12-02] MEDS: IRON SUCROSE COMPLEX 200 MG in 0.9 % SODIUM CHLORIDE 100 ML 220 MG IV (08:54)
--- NOTE | 2023-12-02 14:24 | EXP.CARD.CON ---
History of Present Illness History of Present Illness Consult date: 12/02/23 Requesting physician: Lisa Guardado Chief complaint: syncope History of present illness: This is a 28-year-old white female who presented to the hospital for a scheduled induction for intrauterine growth restriction. The patient had a successful delivery with no complications. She did not have an epidural during her delivery. Yesterday while she was in the bathroom she had a syncopal episode that was witnessed by nursing staff. Nursing reports that the patient had been dizzy when standing and had some ringing in her ears. Nursing states that they walked her to the bathroom and she felt as if she were going to pass out but she did not pass out initially and they lowered her to the toilet after about 15 to 20 minutes nursing staff stood the patient up to transfer her to the wheelchair to get her back to her bed and then she passed out and lost consciousness for a few seconds. They lowered her back to the toilet and had her sniff and ammonia stick and the patient was then alert and came back to. She had another episode through the night where she passed out getting up to go to the bathroom as well. She denies having any chest pain or pressure. She denies any shortness of breath or edema. She denies any fever, chills, nausea, vomiting, diarrhea, PND or orthopnea. The patient has had no issues with syncope or passing out prior to the episodes here following her vaginal delivery. Of note the patient has been anemic throughout her . She was tachycardic yesterday and today following the syncopal episodes and she was started on propranolol this morning. [facility] Disclaimer: The information contained in this section may have been updated after the patient was seen, as this information can be updated by other users. Medical History (Updated 12/02/23 @ 14:29 by Fanny Dexter APRN) Syncope Dizziness Sinus tachycardia with 38 completed weeks gestation Asymmetric IUGR affecting , antepartum Anemia affecting Anxiety disorder affecting , antepartum Surgical History (Updated 12/02/23 @ 07:30 by Lisa Guardado DO) Status post vaginal delivery History of tonsillectomy and adenoidectomy History of gastric bypass Family History Father Hypertension Grandmother Cancer Breast Social History Smoking Status: Never smoker second hand exposure: No alcohol intake: never substance use type: denies use current occupational status: employed Travel in the last 8 weeks: None household members: spouse housing: house marital status: Review of Systems Review of Systems Review of systems:: pertinent systems reviewed and negative unless documented below Constitutional Constitutional: Reports system reviewed and no additional complaints, except as documented Eyes Eyes: Reports system reviewed and no additional complaints, except as documented ENT Ears, Nose, Mouth, and Throat: Reports system reviewed and no additional complaints, except as documented, Reports tinnitus and Reports vertigo *Cardiovascular Cardiovascular: Reports system reviewed and no additional complaints, except as documented, Denies chest pain, Denies dyspnea and Reports syncope *Respiratory Respiratory: Reports system reviewed and no additional complaints, except as documented and Denies dyspnea *Gastrointestinal Gastrointestinal: Reports system reviewed and no additional complaints, except as documented *Genitourinary Genitourinary: Reports system reviewed and no additional complaints, except as documented *Musculoskeletal Musculoskeletal: Reports system reviewed and no additional complaints, except as documented Integumentary/Breasts Skin/Breast: Reports system reviewed and no additional complaints, except as documented *Neurologic Neurologic: Reports system reviewed and no additional complaints, except as documented, Reports syncope and Reports vertigo Psychiatric Psychiatric: Reports system reviewed and no additional complaints, except as documented Endocrine Endocrine: Reports system reviewed and no additional complaints, except as documented Hematologic/Lymphatic Hematologic/Lymphatic: Reports system reviewed and no additional complaints, except as documented Allergic/Immunologic Allergic/Immunologic: Reports system reviewed and no additional complaints, except as documented Exam Data for Last 24 hours Vital signs and Labs for Last 24 Hours: Temp Pulse Resp BP Pulse Ox O2 Del Method 98.5 F 73 17 110/63 100 Room Air 12/02/23 08:15 12/02/23 12:00 12/02/23 08:15 12/02/23 08:15 12/02/23 08:15 12/02/23 08:15 Laboratory Results - last 24 hr 12/01/23 21:26: POC Glucose 103 12/01/23 21:55: WBC 12.0 H D, RBC 3.44 L, Hgb 9.2 L, Hct 26.7 L, MCV 77.7 L, MCH 26.9 L, MCHC 34.6, RDW 22.2 H, Plt Count 293, MPV 10.3, Neut % (Auto) 89.2 H, Lymph % (Auto) 7.3 L, [place] % (Auto) 3.1, Eos % (Auto) 0.3, Baso % (Auto) 0.1, Neut # (Auto) 10.7 H, Lymph # (Auto) 0.9, [place] # (Auto) 0.4, Eos # (Auto) 0.0, Baso # (Auto) 0.0, Total Counted 100, Neutrophils % (Manual) 85 H, Lymphocytes % (Manual) 10, Monocytes % (Manual) 5, Platelet Estimate Normal, Hypochromasia 1+, Anisocytosis 1+, Microcytosis 1+, Tear Drop Cells 1+, Ovalocytes 1+, Sodium 135 L, Potassium 3.7, Chloride 107, Carbon Dioxide 26, Anion Gap 5.7, BUN 3 L, Creatinine 0.40 L, Estimated Creat Clear 261, Estimated GFR 193, Est GFR ( Amer) 233, Glucose 111 H, Calcium 9.1, Total Bilirubin 0.3, AST 30, ALT 12, Alkaline Phosphatase 104, Total Protein 5.4 L, Albumin 3.0 L, Globulin 2.4, Albumin/Globulin Ratio 1.3 12/02/23 06:15: Hgb 8.1 L D, Hct 25.3 L, TSH 3.37, Free T4 0.70 L I & O for Last 24 hours: Intake & Output 11/29/23 11/30/23 12/01/23 12/02/23 23:59 23:59 23:59 23:59 Output Total 1200 / 1200 Balance -1200 / -1200 Weight 171 lb Constitutional Constitutional: no acute distress and average body habitus Comments: EKG is normal sinus rhythm with a rate of 77 bpm. *Routine HEENT Exam Head: Present normocephalic and atraumatic ENT: Present mucous membranes moist *Routine Neck Exam Neck: Present supple, full ROM and normal carotid upstroke; Absent JVD, carotid bruit or lymphadenopathy *Routine Respiratory Exam Respiratory: Present CTA bilaterally, normal respiratory effort, able to speak in complete sentences and symmetric chest movement *Routine Cardiovascular Exam Cardiovascular: Present RRR, Normal S1 and Normal S2; Absent murmur or gallop *Routine Abdominal Exam Abdominal: Present soft and normoactive bowel sounds; Absent tenderness, distended or organomegaly *Routine Extremities Exam Extremities: Present full ROM, pulses intact and normal capillary refill; Absent cyanosis, clubbing or edema *Routine Skin Exam Skin: Present intact and warm; Absent erythema *Routine Neurological Exam Neurological: Present alert, oriented X3 and CN II-XII intact; Absent sensory deficit or motor deficit Routine Psychiatric Exam Psychiatric: Present normal affect Meds Home Medications and Allergies Home Medications Medication Instructions Recorded Confirmed Type sertraline 100 mg tablet (Zoloft) 100 mg PO DAILY #30 tabs 11/19/23 11/30/23 Rx New Prescriptions to Start Prescriptions: Allergies Allergy/AdvReac Type Severity Reaction Status Date / Time No Known Allergies Allergy Verified 11/23/23 09:15 Assessment and Plan *Assessment and plan (1) Syncope: Status: Acute Qualifiers: Syncope type: vasovagal syncope Qualified Code(s): R55 - Syncope and collapse Category: Medical Code(s): R55 - Syncope and collapse (2) anemia: Status: Acute Category: Medical Code(s): O90.81 - Anemia of the puerperium (3) Sinus tachycardia: Status: Acute Category: Medical Code(s): R00.0 - Tachycardia, unspecified (4) Dizziness: Status: Acute Category: Medical Code(s): R42 - Dizziness and giddiness Plan Plan: 1. The patient was admitted to the hospital following a vaginal delivery which was uncomplicated. She does have anemia and has been getting IV iron. 2. The patient had 2 syncopal episodes yesterday and tachycardia. She has been started on propranolol this morning. She was able to successfully get up this morning and walk to the bathroom without any syncope. 3. Echocardiogram shows a normal ejection fraction with mild mitral regurgitation. 4. Her blood pressure is well-controlled. 5. Her LDL goal is less than 100. 6. Her heart rate is well-controlled at this time. 7. The propranolol is okay for the patient to be on for now. We do anticipate that this will be a very short-term medication. The patient likely had syncope from the fluid shifts and anemia in the setting of recent delivery. We do anticipate that in 1 to 2 weeks we can stop the propranolol. 8. We do recommend a 2-week event monitor be in place prior to discharge home. 9. No further recommendations at this time from a cardiac standpoint. The patient is stable for discharge home from a cardiac standpoint once she is released from a medical and OB standpoint. Thank you for the opportunity to help participate in the care of this patient. All recommendations and orders are per Dr. Suarez.
--- NOTE | 2023-12-02 18:10 | P.PN_ITS ---
Subjective *Date: 12/02/23 *Time: 18:10 Interval history: seen at bedside, patient is sitting in hcair, has no complains, she denied diziness, palpitations Exam Data for Last 24 hours Vital signs and Labs for Last 24 Hours: Temp Pulse Resp BP Pulse Ox O2 Del Method 98.3 F 65 18 110/57 L 100 Room Air 12/02/23 15:35 12/02/23 16:00 12/02/23 15:35 12/02/23 15:35 12/02/23 15:35 12/02/23 15:35 Laboratory Results - last 24 hr 12/01/23 21:26: POC Glucose 103 12/01/23 21:55: WBC 12.0 H D, RBC 3.44 L, Hgb 9.2 L, Hct 26.7 L, MCV 77.7 L, MCH 26.9 L, MCHC 34.6, RDW 22.2 H, Plt Count 293, MPV 10.3, Neut % (Auto) 89.2 H, Lymph % (Auto) 7.3 L, [place] % (Auto) 3.1, Eos % (Auto) 0.3, Baso % (Auto) 0.1, Neut # (Auto) 10.7 H, Lymph # (Auto) 0.9, [place] # (Auto) 0.4, Eos # (Auto) 0.0, Baso # (Auto) 0.0, Total Counted 100, Neutrophils % (Manual) 85 H, Lymphocytes % (Manual) 10, Monocytes % (Manual) 5, Platelet Estimate Normal, Hypochromasia 1+, Anisocytosis 1+, Microcytosis 1+, Tear Drop Cells 1+, Ovalocytes 1+, Sodium 135 L, Potassium 3.7, Chloride 107, Carbon Dioxide 26, Anion Gap 5.7, BUN 3 L, Creatinine 0.40 L, Estimated Creat Clear 261, Estimated GFR 193, Est GFR (Afric an Amer) 233, Glucose 111 H, Calcium 9.1, Total Bilirubin 0.3, AST 30, ALT 12, Alkaline Phosphatase 104, Total Protein 5.4 L, Albumin 3.0 L, Globulin 2.4, Albumin/Globulin Ratio 1.3 12/02/23 06:15: Hgb 8.1 L D, Hct 25.3 L, TSH 3.37, Free T4 0.70 L I & O for Last 24 hours: Intake & Output 11/29/23 11/30/23 12/01/23 12/02/23 23:59 23:59 23:59 23:59 Output Total 1200 / 1200 1000 / 1000 Balance -1200 / -1200 -1000 / -1000 Weight 77.564 kg Constitutional Constitutional: no acute distress *Routine HEENT Exam Head: Present normocephalic Eye: Present EOMI and PERRL ENT: Present mucous membranes moist *Routine Neck Exam Neck: Present supple; Absent lymphadenopathy *Routine Respiratory Exam Respiratory: Present CTA bilaterally *Routine Cardiovascular Exam Cardiovascular: Present RRR *Routine Abdominal Exam Abdominal: Present soft and normoactive bowel sounds; Absent tenderness *Routine Extremities Exam Extremities: Absent cyanosis, clubbing or edema *Routine Skin Exam Skin: Present warm; Absent rash *Routine Neurological Exam Neurological: Present alert and oriented X3 Assessment and Plan *Assessment and plan (1) Syncope: Status: Acute Qualifiers: Syncope type: vasovagal syncope Qualified Code(s): R55 - Syncope and collapse Category: Medical Code(s): R55 - Syncope and collapse (2) POTS (postural orthostatic tachycardia syndrome): Status: Acute Category: Medical Code(s): G90.A - Postural orthostatic tachycardia syndrome [POTS] (3) anemia: Status: Acute Category: Medical Code(s): O90.81 - Anemia of the puerperium (4) Anxiety: Status: Acute Category: Medical Code(s): F41.9 - Anxiety disorder, unspecified (5) History of gastric bypass: Status: Acute Category: Surgical Code(s): Z98.84 - Bariatric surgery status Plan 28 yo L1 who presented to [facility] Labor [facility] Delivery for scheduled induction of labor for IUGR. Delivery was successfully without complications. No epidural was given. Medicine was consulted for syncope post . patient denied LOC. however, nursing witnessed last episode with apparent complete collapse. labs work ordered. Hb currently on 9.2. no current excessive bleeding. electrolytes are normal. stand HR and vital signs positive for POTS. HR elevated to 150 from bed to stand position. EKG ordered. Plans as follow: -Syncope post-: suspected vasovagal reflex vs slight dehydration. -POTS: might be a contributor factor DC IV fluids, encourage oral hydration, f/u on echo, consult cardiology, will likely need event monitor CBC/CMP STAT. reviewed. EKG normal. no heart block. HR increased from 77 to 150 from bed to standing position ECHO ordered start continuos cardiac monitoring Orthostactic BP standing elevated HR test positive TSH, T3 T4 ordered started on propanolol 10mg BID avoid changing abruptly position fall precaution - Post anemia: stable. last hb 9.2 continue daily CBC monitor for bleeding Anxiety On zoloft. continue home regimen per primary team supportive care for first time mom Hx of bypass gastric. encouraged to drink enough to prevent dehydration educated to performs multiples small snacks
[2023-12-02] MEDS: SERTRALINE 100MG TABLET 100 MG PO (21:01)
[2023-12-03 00:04] VITALS: BP 111/59; PULSE 69; RESP 16; TEMP 37.3; O2SAT 100
[2023-12-03 04:05] VITALS: BP 100/67; PULSE 70; RESP 17; TEMP 36.5
[2023-12-03 08:00] VITALS: PULSE 80
[2023-12-03] MEDS: PROPRANOLOL 20MG TAB 10 MG PO (08:06)
--- NOTE | 2023-12-03 09:06 | P.DS_ITS ---
General Admission date:: 11/30/23 Discharge date: 12/03/23 HPI HPI HPI: PPD # 2 s/p Feeling well. Pain controlled. Breast feeding. Lochia is appropriate. Voiding without difficulty and passing flatus. Tolerating regular diet. Denies fever/chills, chest pain and shortness of breath. No headaches, vision changes, lightheadedness/dizziness. No lower extremity swelling. Denies any further ringing in ears and near syncopal episodes. She is taking Propranolol 10 m BID. Ambulating well ad aida. Hospital Course Hospital Course Hospital Course: Mrs Carmen Maciel is a very pleasant 28 yo at 38w5d who presents to [facility] Labor [facility] Delivery for scheduled induction of labor for IUGR. Growth ultrasound 11/23/23 demonstrated EFW 6 %ile, S/D ratio WNL, MIREILLE WNL, BPP 8/8. She has had good care. complicated by Anemia and anxiety. She received four weekly infusions of Venofer. She is currently taking Setraline 100 mg PO daily. Baby is active. No leakage of fluid or vaginal bleeding. She had a normal spontaneous vaginal delivery on 12/01/23 at 0929. She delivered a live male baby, Norman Leslie, weighing 5 lb 15 oz. APGARs 9 (1 min), 9 (5 min). EBL 250 mL. period complicated by syncope and tachycarida. Hospitalist and cardiology was consulted. She EKG and echo were within normal limits. She was started on Propranolol 10 mg BID and symptoms improved. No further near syncopal episodes. She also could not void after delivery but felt the urge to void. She had a lot of vaginal swelling after delivery. [place] catheter was inserted until PPD #1. After [place] was removed she was voiding without difficultly. She received Venofer 200mg PO X 1 dose on PPD # 1 for anemia. She otherwise felt okay after delivery. Her pain was controlled. Breast feeding. Light lochia. Voiding without difficulty and passing flatus. Tolerating regular diet. Denies fever/chills, chest pain and shortness of breath. No headaches, dizziness/lightheadedness or vision changes on PPD # 2. Vital signs stable, afebrile. Heart regular rate and rhythm. Lungs clear to auscultation. Abdomen soft, nontender. No lower extremity swelling. Ambulating well ad aida. She was discharged to home on POD # 2 with instructions to follow-up in the office in 2 weeks or sooner if needed. She will be discharged home with two week event monitor, prescription for propranolol 10 mg BID and will be scheduled for follow-up appointment with cardiology. Exam Data for Last 24 hours Vital signs and Labs for Last 24 Hours: Temp Pulse Resp BP Pulse Ox O2 Del Method 97.7 F 70 17 100/67 L 100 Room Air 12/03/23 04:05 12/03/23 04:05 12/03/23 04:05 12/03/23 04:05 12/03/23 00:04 12/03/23 00:04 I & O for Last 24 hours: Intake & Output 11/30/23 12/01/23 12/02/23 12/03/23 23:59 23:59 23:59 23:59 Output Total 1200 / 1200 1000 / 1000 Balance -1200 / -1200 -1000 / -1000 Weight 171 lb Microbiology Reports for the Last 24 Hours: Microbiology 11/30/23 15:30 Urine,Clean Catch Urine Culture - Final Constitutional Constitutional: no acute distress and cooperative *Routine HEENT Exam Head: Present normocephalic and atraumatic Eye: Absent conjunctivae pink ENT: Present mucous membranes moist *Routine Neck Exam Neck: Present full ROM *Routine Respiratory Exam Respiratory: Present CTA bilaterally and normal respiratory effort *Routine Cardiovascular Exam Cardiovascular: Present RRR *Routine Abdominal Exam Abdominal: Present soft and normoactive bowel sounds; Absent tenderness or distended Comments: Uterine fundus firm and below umbilicus *Routine Rectal Exam Patient deferred: visual exam *Routine Exam Patient deferred: external exam *Routine Extremities Exam Extremities: Present full ROM; Absent edema or calf tenderness *Routine Neurological Exam Neurological: Present alert, moving all extremities and normal speech Routine Psychiatric Exam Psychiatric: Present normal affect and cooperative DS: Diagnosis Discharge Diagnosis (1) Status post vaginal delivery: Status: Acute (2) with 38 completed weeks gestation: Status: Acute Code(s): Z3A.38 - 38 weeks gestation of (3) Asymmetric IUGR affecting , antepartum: Status: Acute Code(s): O36.5990 - Maternal care for other known or suspected poor growth, unspecified trimester, not applicable or unspecified (4) Syncope: Status: Acute Code(s): R55 - Syncope and collapse Qualifiers: Syncope type: vasovagal syncope Qualified Code(s): R55 - Syncope and collapse (5) POTS (postural orthostatic tachycardia syndrome): Status: Acute Code(s): G90.A - Postural orthostatic tachycardia syndrome [POTS] (6) anemia: Status: Acute Code(s): O90.81 - Anemia of the puerperium (7) Anxiety: Status: Acute Code(s): F41.9 - Anxiety disorder, unspecified (8) History of gastric bypass: Status: Acute Code(s): Z98.84 - Bariatric surgery status (9) Sinus tachycardia: Status: Acute Code(s): R00.0 - Tachycardia, unspecified (10) Anemia affecting : Status: Acute Code(s): O99.019 - Anemia complicating , unspecified trimester Qualifiers: Trimester: second trimester Qualified Code(s): O99.012 - Anemia complicating , second trimester (11) Anxiety disorder affecting , antepartum: Status: Acute Code(s): O99.340 - Other mental disorders complicating , unspecified trimester; F41.9 - Anxiety disorder, unspecified Meds Home Medications and Allergies Home Medications Medication Instructions Recorded Confirmed Type sertraline 100 mg tablet (Zoloft) 100 mg PO DAILY #30 tabs 11/19/23 11/30/23 Rx ibuprofen 800 mg tablet 800 mg PO Q8H PRN pain #20 tabs 12/03/23 Rx propranolol 20 mg tablet 10 mg (1/2 x 20 mg) PO BID 2 weeks 12/03/23 Rx #14 tabs New Prescriptions to Start Prescriptions: ibuprofen Lisa Guardado propranolol Lisa Guardado Allergies Allergy/AdvReac Type Severity Reaction Status Date / Time No Known Allergies Allergy Verified 11/23/23 09:15 Discharge Plan Disposition Patient Disposition: Home, Self-Care Condition: Good Discharge Order Discharge Orders: Discharge Order (Routine); Ordered 12/03/23 Ordered By: Lisa Guardado Follow up Plan Follow up with: Lisa Guardado DO [Staff Physician] - 12/21/23 10:15 am Rk Suarez MD [Staff Physician] - 12/23/23 2:15 pm Prescriptions/Medication Reconciliation: New propranolol 20 mg Tablet 10 mg PO BID 14 Days Qty: 14 0RF ibuprofen 800 mg tablet 800 mg PO Q8H PRN (Reason: pain) Qty: 20 0RF Continued sertraline [Zoloft] 100 mg tablet 100 mg PO DAILY Qty: 30 11RF Problem Reconciliation Problems Reviewed?: Yes Patient Discharge Instructions ACTIVITY: Limited activity DIET: continue same diet and regular diet Additional Instructions: Discharge: 1. Take 800 mg Ibuprofen every 8 hours as needed for pain. You can also take 500-1000 mg of Tylenol in between doses, every 6-8 hours. 2. Nothing in the vagina for 6 weeks - no intercourse, douching or tampons. No tub baths/hot tubs or swimming pools 3. Reasons to return to L&D or call On-Call doctor - fever (greater than 100.4) - heavy vaginal bleeding (soaking through 1 pad in less than 2 hours) - vaginal discharge (malodorous and/or purulent) - severe headaches not resolved by medication or rest and leg tenderness/edema 4. depression/blues - Normal to feel anxious/overwhelmed for first 2 weeks - Talk to your doctor if: severe anxiety, trouble bonding with baby, withdrawing from other family members, thoughts of harming yourself or others Lisa Guardado DO [facility] [phone] Patient Instructions: Depression, Hemorrhage, DI for Labor and Delivery, Vaginal , DI for Pre-eclampsia, [facility] Post Discharge Instructions Providers Primary Care Provider: Renee Castro Admit Provider: Fanny Stevens Attending Provider: Lisa Guardado
--- NOTE | 2023-12-03 09:09 | PC.NURSE ---
called cardiology for f/u appt and RT for placement of 2 week event monitor.
[2023-12-03 09:15] VITALS: BP 113/67; PULSE 68; RESP 18; TEMP 36.8; O2SAT 100
[2023-12-04 08:16] LABS: Triiodothyronine (T3) Total 189 ng/dL (71-180)
== END 2023-12-03 11:02 | disposition home or self-care (01) | DRG 807 ==
PROVIDERS: Nurse Practitioner Family; Admitting Provider Obstetrics & Gynecology; PCP Nurse Practitioner Family; Visit Provider Obstetrics & Gynecology
DX: O36.5930 Maternal care for other known or suspected poor fetal growth, third trimester, not applicable or unspecified (principal); Z37.0 Single live birth; Z3A.38 38 weeks gestation of pregnancy; O99.344 Other mental disorders complicating childbirth; O99.02 Anemia complicating childbirth; O69.81X0 Labor and delivery complicated by cord around neck, without compression, not applicable or unspecified; O70.1 Second degree perineal laceration during delivery; Z98.84 Bariatric surgery status
CPT/HCPCS: 59409; 36415; 59025; 80053; 80307; 81001; 82962; 84439; 84443; 84480; 85007; 85014; 85018; 85025; 86850; 87086; 93005; 93270; 93306; 94761; G0283; J1756